=== PATIENT | female | born 1945 | race Caucasian/White ===

== ENCOUNTER → 2018-06-04 14:53 | Outpatient (CLI) | payer OTHER, SELFPAY ==
[2018-06-04 16:15] LABS: Hematocrit 37.7 % (36-46); Hemoglobin 12.4 g/dL (12.0-16.0); Mean Corpuscular HGB Conc 32.9 % (30-36); Mean Corpuscular Hemoglobin 27.3 PG (26-34); Mean Corpuscular Volume 83.2 fL (80-100); Platelet Count 267 X10^3/uL (150-400); Red Blood Cell Count 4.53 X10^6/uL (4.0-5.2); Red Cell Distribution Width 15.6 % (11.6-14.8); White Blood Cell Count 5.5 X10^3/uL (4.5-11.0)
[2018-06-04 16:33] LABS: Neutrophils Absolute Manual 3080 /uL (3000-5900); Total Cells Counted 100
[2018-06-04 16:34] LABS: Anisocytosis 1+
[2018-06-04 16:54] LABS: Alanine Aminotransferase 20 IU/L (9-52); Albumin 4.4 g/dL (3.5-5.0); Albumin Globulin Ratio 1.6 (1.0-2.8); Alkaline Phosphatase 65 U/L (38-126); Aspartate Aminotransferase 25 IU/L (14-36); BUN Creatinine Ratio 24.3 (6-22); Bilirubin Total 0.6 mg/dL (0.2-1.3); Blood Urea Nitrogen 17 mg/dL (7-17); Calcium 9.6 mg/dL (8.4-10.2); Carbon Dioxide 28 mmol/L (22-32); Chloride 106 mmol/L (98-107); Estimated Glomerular Filt Rate > 60.0 mL/min (>60); Globulin 2.8 g/dL (1.7-4.1); Glucose 96 mg/dL (80-110); HEMOLYSIS < 15 (0-50); Potassium 3.8 mmol/L (3.4-5.1); Sodium 144 mmol/L (137-145); Total Protein 7.2 g/dL (6.3-8.2)
== END ==
PROVIDERS: PCP Family Medicine; Visit Provider Family Medicine
DX: B35.1 Tinea unguium (principal)
CPT/HCPCS: 80053; 85025

== ENCOUNTER → 2018-06-12 16:43 | Outpatient (CLI) | payer OTHER, SELFPAY | PROVIDERS: PCP Family Medicine; Visit Provider Family Medicine | DX: R15.9 Full incontinence of feces (principal); R19.5 Other fecal abnormalities; R19.7 Diarrhea, unspecified ==

== ENCOUNTER → 2018-06-18 16:11 | Outpatient (CLI) | payer OTHER, SELFPAY ==
[2018-06-18 18:09] LABS: Clostridium Difficile Tox PCR Negative for C. diff
== END ==
PROVIDERS: PCP Family Medicine; Visit Provider Family Medicine
DX: R15.9 Full incontinence of feces (principal); R19.5 Other fecal abnormalities
CPT/HCPCS: 87493

== ENCOUNTER → 2020-01-19 17:49 | Outpatient (CLI) | payer MEDICARE, SELFPAY ==
[2020-01-19 18:39] LABS: Influenza A - CEPHEID Flu A NEGATIVE (NEGATIVE); Influenza B - CEPHEID Flu B NEGATIVE (NEGATIVE)
[2020-01-25 21:07] LABS: COVID19 Sendout Not Detected (Not Detected)
== END ==
PROVIDERS: PCP Family Medicine; Referring Provider Nurse Practitioner Family; Visit Provider Nurse Practitioner Family
DX: R50.9 Fever, unspecified (principal); Z11.59 Encounter for screening for other viral diseases
CPT/HCPCS: 87502; 87635

== ENCOUNTER → 2020-01-23 21:56 | Outpatient (ROUT) | payer MEDICARE, SELFPAY ==
[2020-01-23 22:01] LABS: RBC Urine None Seen (0-5/HPF)
[2020-01-23 22:10] LABS: Bilirubin Urine UA NEGATIVE (NEGATIVE); Color Urine UA YELLOW; Glucose Urine UA NEGATIVE (Negative); Ketones Urine UA TRACE (NEGATIVE); Leukocyte Esterase Urine UA TRACE (NEGATIVE); Nitrite Urine UA POSITIVE (Negative); Occult Blood Urine UA NEGATIVE (Negative); Protein Urine UA NEGATIVE (Negative); Specific Gravity Urine UA 1.025 (1.000-1.035); Urobilinogen Urine UA 0.2 E.U./dL (0.2)
[2020-01-23 22:11] LABS: Appearance Urine UA SL CLOUDY; pH Urine UA 5.5 (4.5-8.0)
[2020-01-23 22:21] LABS: Bacteria Urine Many (>30); Culture Indicated Urine Specimen Cultured; Mucus Urine 1+ (Negative); Squamous Epithelial Cell Urine 1-5 /HPF (0-5/HPF); WBC Urine 30-100/HPF (0-5/HPF)
== END ==
PROVIDERS: PCP Family Medicine; Visit Provider Nurse Practitioner Family
DX: R50.9 Fever, unspecified (principal); R32 Unspecified urinary incontinence; R45.1 Restlessness and agitation
CPT/HCPCS: 81001; 87077; 87086; 87186

== ENCOUNTER 2020-02-02 19:59 | Emergency (ER) | payer MEDICARE, SELFPAY ==
[2020-02-02 20:04] VITALS: BP 140/78; PULSE 68; RESP 18; TEMP 36.8; O2SAT 97
--- NOTE | 2020-02-02 20:18 | ED_ITS ---
HPI - Fever General Chief Complaint: Fever Stated Complaint: fever Time Seen by Provider: 02/02/20 20:04 Source: patient and family Mode of arrival: Ambulatory Limitations: no limitations History of Present Illness HPI Narrative: 74-year-old female nonsmoker with history of dementia presents with [facility] from [facility] for evaluation of fever, chills, shortness of breath, dry hacking cough and oxygen sats in the low 90s and upper 80s over the past day or so. She was seen and evaluated recently apparently and swabbed for COVID-19 but was negative. She denies any recent travel and has had no exposure to persons under suspicion for COVID-19. She is completely asymptomatic on arrival. Recently treated with ABX for UTI. states she hasn't had any respiratory symptoms, such as cough, SOB, or abnormal pulse ox, just fever of 100F. MD complaint: fever Onset (ago): hour(s) Temperature Source: oral Context: recent antibiotic use Associated symptoms: shortness of breath Relieving factors: nothing Exacerbating factors: nothing Treatments prior to arrival fever: none Related Data Previous Rx's Medication Instructions Recorded efinaconazole 10 % topical 1 applictn TOP DAILY #4 ml 06/05/18 solution with applicator [KRILL OIL] 500 mg PO QDAY #90 10/01/18 [TUMERIC] 1,000 mg PO QDAY #90 10/01/18 memantine 10 mg tablet 10 mg PO BID #60 tab 10/01/18 vitamin B complex 1 tab PO QDAY #90 tab 10/01/18 sertraline 100 mg tablet 100 mg PO QDAY #30 tab 10/29/18 galantamine 24 mg 24 hr 24 mg PO QDAY #30 cap 02/24/19 capsule,extended release Allergies Allergy/AdvReac Type Severity Reaction Status Date / Time No Known Drug Allergies Allergy Verified 05/07/18 12:16 Review of Systems Constitutional Constitutional: Denies chills, Denies fatigue, Reports fever(s), Denies frequent falls, Denies lethargy and Denies weakness Eyes Eyes: Denies change in vision, Denies eye discharge, Denies irritation and Denies loss of vision ENT Ears, Nose, Mouth, and Throat: Denies change in voice, Denies dizziness, Denies neck pain, Denies sore throat and Denies throat swelling Cardiovascular Cardiovascular: Denies chest pain, Denies irregular heart rhythm, Denies lightheadedness, Denies palpitations, Reports dyspnea, Denies dyspnea on exertion and Denies orthopnea Respiratory Respiratory: Reports cough, Reports dyspnea, Denies dyspnea on exertion and Denies wheezing Gastrointestinal Gastrointestinal: Denies abdominal pain, Denies change in bowel habits, Denies diarrhea, Denies nausea and Denies vomiting Genitourinary Genitourinary: Denies hematuria, Denies flank pain, Denies urinary incontinence and Denies urinary urgency Musculoskeletal Musculoskeletal: Denies back pain, Denies muscle weakness, Denies neck pain, Denies numbness and Denies tingling Integumentary/Breasts Skin/Breast: Denies pruritus, Denies erythema, Denies rash and Denies wounds Neurologic Neurologic: Denies behavioral changes, Denies confusion, Denies dizziness, Denies frequent falls, Denies loss of vision, Denies numbness, Denies tingling and Denies weakness Psychiatric Psychiatric: Denies anxiety, Denies behavioral changes, Denies confusion, Denies depression, Denies homicidal ideation and Denies suicidal ideation Endocrine Endocrine: Denies fatigue, Denies flushing and Denies palpitations Hematologic/Lymphatic Hematologic/Lymphatic: Denies easy bruising Allergic/Immunologic Allergic/Immunologic: Denies urticaria, Denies throat swelling and Denies wheezing Patient History Medical History Alzheimer disease (Chronic ~2015) Chickenpox (Resolved 1952) Depression (Chronic) MCI (mild cognitive impairment) (Chronic 2011) 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 Mother No problems noted. Social History Smoking Status: Never smoker alcohol intake: never substance use type: does not use Smoking Status: Never smoker alcohol intake frequency: 0-2 drinks per day Substance Use Type: does not use Exam Narrative Exam Narrative: GENERAL: [74] year old patient appears stated age. Well- nourished, well-developed patient, in mild distress. HEAD: Atraumatic. Normocephalic. EYES: Pupils equal round and reactive. Extraocular motions intact. No scleral icterus. No injection or drainage. ENT: Nose without bleeding, purulent drainage. Throat without erythema, tonsillar hypertrophy or exudate. Airway patent. NECK: Trachea midline. Non tender CARDIOVASCULAR: Regular rate and rhythm without murmurs, gallops, or rubs. RESPIRATORY: Clear to auscultation. Breath sounds equal bilaterally. No wheezes, rales, or rhonchi. GASTROINTESTINAL: Abdomen soft, non-tender, nondistended. EXTREMITIES: No edema or joint tenderness. BACK: Nontender without deformity or crepitance. No flank tenderness. NEURO: AOx3. SKIN: No rash or erythema of visible areas Initial Vital Signs Initial Vital Signs: Vital Signs Temperature 98.2 F 02/02/20 20:04 Pulse Rate 68 02/02/20 20:04 Respiratory Rate 18 02/02/20 20:04 Blood Pressure 140/78 02/02/20 20:04 Pulse Oximetry 97 02/02/20 20:04 Course Orders Ordered: ED Orders 02/02/20 20:18 XR chest 1V Stat 02/02/20 20:33 C-Reactive Protein Quant Stat Complete Blood Count AUTO DIFF Stat Comprehensive Metabolic Panel Stat Ferritin Stat Lactate Dehydrogenase Stat Procalcitonin Stat Vital Signs Vital signs: Vital Signs - 8 hr 02/02/20 20:04 02/02/20 20:40 Temperature 98.2 F Pulse Rate 68 65 Respiratory Rate 18 17 Blood Pressure 140/78 Blood Pressure [Left Arm] 138/57 L Pulse Oximetry 97 98 MDM - Fever Lab Data Result diagrams: 02/02/20 20:33 02/02/20 20:33 Labs: Lab Results 02/02/20 02/02/20 02/02/20 Range/Units 20:33 20:33 20:33 WBC 6.7 (4.5-11.0) X10^3/uL RBC 4.43 (4.0-5.2) X10^6/uL Hgb 13.1 (12.0-16.0) g/dL Hct 39.4 (36-46) % MCV 89.0 (80-100) fL MCH 29.6 (26-34) PG MCHC 33.3 (30-36) % RDW 14.1 (11.6-14.8) % Plt Count 246 (150-400) X10^3/uL Neut % (Auto) 63.3 (50-75) % Lymph % (Auto) 26.3 (25-40) % [place] % (Auto) 7.3 (3-14) % Eos % (Auto) 1.8 L (2-4) % Baso % (Auto) 1.3 (0-2) % Neut # (Auto) 4300 (2075-6844) /uL Lymph # (Auto) 1800 (8821-1546) /uL [place] # (Auto) 500 (0-900) /uL Eos # (Auto) 100 (0-450) /uL Baso # (Auto) 100 (0-100) /uL Sodium (137-145) mmol/L Potassium (3.4-5.1) mmol/L Chloride (98-107) mmol/L Carbon Dioxide (22-32) mmol/L BUN (7-17) mg/dL Creatinine (0.52-1.04) mg/dL Estimated GFR (>60) mL/min BUN/Creatinine Ratio (6-22) Glucose (80-110) mg/dL Calcium (8.4-10.2) mg/dL Ferritin (11-264) ng/mL Total Bilirubin (0.2-1.3) mg/dL AST (14-36) IU/L ALT (<35) IU/L Alkaline Phosphatase (38-126) U/L Lactate Dehydrogenase 445 (313-618) U/L C-Reactive Protein (<1.0) mg/dL Total Protein (6.3-8.2) g/dL Albumin (3.5-5.0) g/dL Globulin (1.7-4.1) g/dL Albumin/Globulin Ratio (1.0-2.8) Procalcitonin < 0.05 (<0.5) ng/mL 02/02/20 Range/Units 20:33 WBC (4.5-11.0) X10^3/uL RBC (4.0-5.2) X10^6/uL Hgb (12.0-16.0) g/dL Hct (36-46) % MCV (80-100) fL MCH (26-34) PG MCHC (30-36) % RDW (11.6-14.8) % Plt Count (150-400) X10^3/uL Neut % (Auto) (50-75) % Lymph % (Auto) (25-40) % [place] % (Auto) (3-14) % Eos % (Auto) (2-4) % Baso % (Auto) (0-2) % Neut # (Auto) (5016-2104) /uL Lymph # (Auto) (8613-6595) /uL [place] # (Auto) (0-900) /uL Eos # (Auto) (0-450) /uL Baso # (Auto) (0-100) /uL Sodium 140 (137-145) mmol/L Potassium 4.2 (3.4-5.1) mmol/L Chloride 107 (98-107) mmol/L Carbon Dioxide 29 (22-32) mmol/L BUN 30 H (7-17) mg/dL Creatinine 0.73 (0.52-1.04) mg/dL Estimated GFR > 60.0 (>60) mL/min BUN/Creatinine Ratio 41.1 H (6-22) Glucose 106 (80-110) mg/dL Calcium 9.8 (8.4-10.2) mg/dL Ferritin 45 (11-264) ng/mL Total Bilirubin 1.4 H (0.2-1.3) mg/dL AST 27 (14-36) IU/L ALT 19 (<35) IU/L Alkaline Phosphatase 68 (38-126) U/L Lactate Dehydrogenase (313-618) U/L C-Reactive Protein 0.6 (<1.0) mg/dL Total Protein 7.2 (6.3-8.2) g/dL Albumin 4.2 (3.5-5.0) g/dL Globulin 3.0 (1.7-4.1) g/dL Albumin/Globulin Ratio 1.4 (1.0-2.8) Procalcitonin (<0.5) ng/mL Imaging Data Chest x-ray: Radiologist's Impression: [address] [id number] XRay Report Signed Patient: Lore Cervantes [facility]#: [id number] : 6Acct:[id number] Age/Sex: 74 / FDate of Service: 02/02/20 Loc: ED Accession Number: [id number] Procedure: XR chest 1V Ordering Provider: Santosh Jaeger D.O. PROCEDURE: XR CHEST 1V INDICATIONS: SOB, cough, fever, hypoxia TECHNIQUE: One view of the chest was acquired. COMPARISON: [facility], CHEST 1 VIEW, 12/15/2017, 0:02. FINDINGS: Surgical changes and devices: None. Lungs and pleura: Lungs are clear. No pleural effusions or pneumothorax. Mild increased vascularity. Mediastinum: Mediastinal contours appear normal. Heart size is normal. Bones and chest wall: No suspicious bony lesions. Overlying soft tissues appear unremarkable. IMPRESSION: Mild increased vascularity suggestive of edema. Dictated by: Henrietta Ndiaye M.D. on 02/02/2020 at 20:44 Approved by: Henrietta Ndiaye M.D. on 02/02/2020 at 20:44 Discharge Plan Departure Patient Disposition: Home Clinical Impression: Feared complaint without diagnosis Fever Qualifiers: Fever type: unspecified Qualified Code(s): R50.9 - Fever, unspecified Discharge Date/Time: 02/02/20 22:20 Activity Restrictions/Additional Instructions: *You have been diagnosed with [fever resolved] *What to do: * continue to take medications as directed *Follow up with your primary care provider in 2-3 days, call for an appointment. Let them know you were seen in the Emergency Department and that we ask that you be seen in follow up *Return to ER if you should have any new, worsening or concerning symptoms Prescriptions: No Action efinaconazole [Jublia] 10 % solution with applicator 1 applictn TOP DAILY Qty: 4 RF: 3 vitamin B complex [B Complex-Vitamin B12] tablet 1 tab PO QDAY Qty: 90 RF: 3 [KRILL OIL] 500 mg PO QDAY Qty: 90 RF: 3 [TUMERIC] 1,000 mg PO QDAY Qty: 90 RF: 3 memantine 10 mg tablet 10 mg PO BID Qty: 60 RF: 5 sertraline 100 mg tablet 100 mg PO QDAY Qty: 30 RF: 5 galantamine 24 mg capsule,ext rel. pellets 24 hr 24 mg PO QDAY Qty: 30 RF: 5 Referrals: Jhoan Hayden MD [Primary Care Provider] -
[2020-02-02 20:40] VITALS: BP 138/57; PULSE 65; RESP 17; O2SAT 98
[2020-02-02 20:41] LABS: Add Manual Diff / Slide Review NO; Basophils Absolute Auto 100 /uL (0-100); Basophils Percent Auto 1.3 % (0-2); Eosinophils Absolute Auto 100 /uL (0-450); Eosinophils Percent Auto 1.8 % (2-4); Hematocrit 39.4 % (36-46); Hemoglobin 13.1 g/dL (12.0-16.0); Lymphocytes Absolute Auto 1800 /uL (1100-4500); Lymphocytes Percent Auto 26.3 % (25-40); Mean Corpuscular HGB Conc 33.3 % (30-36); Mean Corpuscular Hemoglobin 29.6 PG (26-34); Monocytes Absolute Auto 500 /uL (0-900); Monocytes Percent Auto 7.3 % (3-14); Neutrophils Absolute Auto 4300 /uL (1500-7000); Neutrophils Percent Auto 63.3 % (50-75); Platelet Count 246 X10^3/uL (150-400); Red Blood Cell Count 4.43 X10^6/uL (4.0-5.2); Red Cell Distribution Width 14.1 % (11.6-14.8); White Blood Cell Count 6.7 X10^3/uL (4.5-11.0)
[2020-02-02 20:57] LABS: Lactate Dehydrogenase 445 U/L (313-618)
[2020-02-02 21:00] LABS: Alanine Aminotransferase 19 IU/L (<35); Albumin 4.2 g/dL (3.5-5.0); Albumin Globulin Ratio 1.4 (1.0-2.8); Alkaline Phosphatase 68 U/L (38-126); Aspartate Aminotransferase 27 IU/L (14-36); BUN Creatinine Ratio 41.1 (6-22); Bilirubin Total 1.4 mg/dL (0.2-1.3); Blood Urea Nitrogen 30 mg/dL (7-17); C-Reactive Protein Quant 0.6 mg/dL (<1.0); Calcium 9.8 mg/dL (8.4-10.2); Carbon Dioxide 29 mmol/L (22-32); Chloride 107 mmol/L (98-107); Estimated Glomerular Filt Rate > 60.0 mL/min (>60); Glucose 106 mg/dL (80-110); HEMOLYSIS < 15 (0-50); Potassium 4.2 mmol/L (3.4-5.1); Sodium 140 mmol/L (137-145); Total Protein 7.2 g/dL (6.3-8.2)
[2020-02-02 21:23] LABS: Procalcitonin < 0.05 ng/mL (<0.5)
[2020-02-02 21:32] LABS: Ferritin 45 ng/mL (11-264)
[2020-02-04 23:25] LABS: COVID19 Sendout Not Detected (Not Detected)
== END 2020-02-02 22:20 | disposition home or self-care (01) ==
PROVIDERS: Emergency Provider Emergency Medicine; PCP Family Medicine
DX: R50.9 Fever, unspecified (principal); R06.02 Shortness of breath; R05 Cough; F03.90 Unspecified dementia, unspecified severity, without behavioral disturbance, psychotic disturbance, mood disturbance, and anxiety
CPT/HCPCS: 36415; 71045; 80053; 82728; 83615; 84145; 85025; 86140; 87635; 99284

== ENCOUNTER → 2020-02-16 02:58 | Outpatient (ROUT) | payer MEDICARE, SELFPAY ==
[2020-02-16 03:00] LABS: Bacteria Urine None Seen
[2020-02-16 03:04] LABS: Appearance Urine UA CLEAR; Bilirubin Urine UA NEGATIVE (NEGATIVE); Color Urine UA YELLOW; Glucose Urine UA NEGATIVE (Negative); Ketones Urine UA NEGATIVE (NEGATIVE); Leukocyte Esterase Urine UA NEGATIVE (NEGATIVE); Nitrite Urine UA NEGATIVE (Negative); Occult Blood Urine UA NEGATIVE (Negative); Protein Urine UA NEGATIVE (Negative); Specific Gravity Urine UA >=1.030 (1.000-1.035); Urobilinogen Urine UA 0.2 E.U./dL (0.2)
[2020-02-16 03:15] LABS: pH Urine UA 5.5 (4.5-8.0)
[2020-02-16 06:01] LABS: Culture Indicated Urine Cult Not Indicated; RBC Urine 0-1/HPF (0-5/HPF); Squamous Epithelial Cell Urine 0-1 /HPF (0-5/HPF); WBC Urine 0-1/HPF (0-5/HPF)
== END ==
PROVIDERS: PCP Internal Medicine; Visit Provider Nurse Practitioner Family
DX: R50.9 Fever, unspecified (principal); R32 Unspecified urinary incontinence
CPT/HCPCS: 81001